=== PATIENT | female | born 1930 ===

== ENCOUNTER 2017-07-12 15:01 | Inpatient (IN) ==
[2017-07-12] MEDS: HYDROmorphone 2 MG/ML VIAL IV PRN ×3 (15:45→19:30)
[2017-07-12] MEDS ORDERED: ONDANSETRON 4 MG/2 ML VIAL ONE (15:49)
--- NOTE | 2017-07-12 16:02 | Cat Scan Report ---
CLINICAL INFORMATION: Trauma - fall COMPARISON: Plain films from 07/24/2010 TECHNIQUE: 0.625 mm helical slices were obtained from the mid L4 vertebral body. Mid femur. Following reconstruction, 2.5 or axial, coronal and sagittal reformatted images were processed and reviewed at bone and soft tissue windows. FINDINGS: Minimally comminuted, acute subcapital fracture of the right hip is appreciated. The femoral neck is displaced anteriorly approximately 15 mm with respect to the femoral head. A few tiny comminuted fracture fragments are also noted. The left total hip prostheses remains anatomically aligned without loosening or infection. Moderate diffuse osteoporosis is noted. There is a 7 cm cyst inferior pole left kidney. Visualized small/ large bowel is normal. The urinary bladder is unremarkable. IMPRESSION: Minimally comminuted, transversely oriented, acute subcapital fracture of the right hip with marked anterior displacement of the femoral neck Interpreted and Authenticated by: Vu Pelayo 07/12/17
--- NOTE | 2017-07-12 16:44 | Emergency Department Note ---
Fall HPI - General Chief Complaint: Extremity Injury, Lower Stated Complaint: fall with L hip pain Time Seen by Provider: 07/12/17 15:10 Source: EMS, other Mode of arrival: ambulatory - History of Present Illness HPI Narrative: 87-year-old female presents with right hip pain after a fall. She lives at [facility] in care. She just kind of tripped and lost her balance like her hip gave out and she fell. Did not hit her head. No loss of consciousness. No head, neck, or back pain. Cannot ambulate due to pain. She was brought in by ambulance and did have fentanyl in route. Her family is from [place] and her daughter, the power of civil litigation attorney is on her way down currently. Place Fall Occurred: snf/SNF Loss of Consciousness: none Symptoms Prior to Fall: none Context: tripped/slipped Associated symptoms (after fall): Reports: unable to walk. Denies: headache, neck pain, numbness, weakness, chest pain, shortness of breath - Related Data Home Medications Medication Instructions Recorded Confirmed Aspirin [Lite Coat Aspirin] 325 mg PO DAILY 07/12/17 07/12/17 Budesonide [Pulmicort] 0.5 mg NEB Q12 07/12/17 07/12/17 Donepezil [Aricept] 5 mg PO DAILY 07/12/17 07/12/17 Formoterol Fumarate [Perforomist] 20 mcg IH BID 07/12/17 07/12/17 Hyoscyamine Sulfate [Anaspaz] 0.125 mg PO Q4 PRN 07/12/17 07/12/17 Ipratropium [Atrovent] 2.5 ml IH BIDP PRN 07/12/17 07/12/17 LORazepam [Ativan] 0.5 mg PO DAILY 07/12/17 07/12/17 Levothyroxine [Synthroid] 75 mcg PO DAILY 07/12/17 07/12/17 Losartan/Hydrochlorothiazide 1 each PO DAILY 07/12/17 07/12/17 [Losartan-Hctz 100-25 mg Tab] Sertraline [Zoloft] 25 mg PO DAILY 07/12/17 07/12/17 Simvastatin [Zocor] 40 mg PO HS 07/12/17 07/12/17 morphine SULFATE [Morphine Sulfate] 100 mg IV BID 07/12/17 07/12/17 Allergies Allergy/AdvReac Type Severity Reaction Status Date / Time Moexipril [From Univasc] Allergy Unknown Unknown Verified 04/23/16 18:50 Review of Systems All systems ED: reviewed and negative except as stated. Fall PMH - Past Medical History Medical history: Reports: COPD, hypertension, thyroid disease, other (cardiac stent and bypass surgery) Surgical history ED: Reports: cataract, other (Cardiac stent and bypass) - Social History smoking status: Never smoker Alcohol use: Reports: None Drug use: Reports: none Physical Exam Limitations: no limitations General appearance: alert, in no apparent distress Head: atraumatic, normocephalic, normal inspection Eye: Present: normal appearance. Absent: conjunctival injection ENT: mucous membranes moist Neck: Present: normal inspection, full ROM, trachea midline. Absent: tenderness , lymphadenopathy Chest: Present: normal inspection, symmetric chest wall rise Respiratory: Present: normal lung sounds bilaterally, other (Lung sounds mildly diminished at bases bilaterally otherwise clear throughout). Absent: respiratory distress, wheezes, accessory muscle use Cardiovascular: Present: regular rate, normal heart sounds Extremities: Absent: normal inspection (Right hip with diffuse tenderness with palpation. Slightly shortened and rotated. Pedal pulses strong and equal bilaterally. Greatly limited range of motion of the right hip related pain.) Neurological: Present: alert, oriented X3. Absent: motor sensory deficit Psychiatric: Present: normal affect, normal mood Skin: Present: warm, dry, intact, normal color. Absent: rash, cyanosis, diaphoresis, erythema Course Course Narrative: At 16[address] did speak with Dr[address] Banerjee the orthopedic surgeon education and training coordinator. I have spoke with the family and they would talk like to talk to Dr. Banerjee and get his opinion on the necessity of surgery especially with her chronic health conditions. Dr. Banerjee would also like the hospitalist consult and possibly admit if they would like to move forward with surgery. At 1800 family did arrive and Dr. Farias has been in consultation with the family for the last [address] Farias agrees to admit the patient. Vital Signs Temperature 98.4 F 07/12/17 15:02 Pulse Rate 74 07/12/17 15:02 Respiratory Rate 16 07/12/17 15:02 Blood Pressure 206/114 07/12/17 15:02 Pulse Oximetry (%) 93 07/12/17 15:02 Temperature 98.4 F 07/12/17 15:02 Pulse Rate 81 07/12/17 18:31 Respiratory Rate 16 07/12/17 15:25 Blood Pressure 149/86 07/12/17 18:31 Pulse Oximetry (%) 99 07/12/17 18:31 Fall - Lab Data Lab results reviewed: Yes I reviewed the patient's lab results. Result diagrams: 07/12/17 16:15 07/12/17 16:15 Lab Results 07/12/17 07/12/17 Range/Units 16:15 16:15 WBC 3.9 L (4.5-11.0) K/mcL RBC 3.28 L (4.00-5.20) M/mcL Hgb 8.6 L (12.0-15.0) g/dL Hct 26.2 L (36.0-48.0) % MCV 80.1 (80.0-100.0) fL MCH 26.4 (26.0-34.0) pg MCHC 33.0 (31.0-36.0) g/dL RDW 15.5 H (11.5-14.5) % Plt Count 150 (140-440) K/mcL MPV 9.1 (7.4-10.4) fL Gran % 78.8 H (38.0-78.0) % Lymph % (Auto) 11.5 L (15.5-49.0) % Schley % (Auto) 8.0 (1.0-12.0) % Eos % (Auto) 1.5 (0.0-7.0) % Baso % (Auto) 0.2 (0.0-2.0) % Gran # 3.1 (1.8-8.0) K/mcL Lymph # (Auto) 0.5 L (1.5-4.8) K/mcL Schley # (Auto) 0.3 (0.1-0.9) K/mcL Eos # (Auto) 0.1 (0.0-0.7) K/mcL Baso # (Auto) 0 (0.0-0.3) K/mcL Sodium 143 (133-145) mmol/L Potassium 3.9 (3.3-5.1) mmol/L Chloride 103 (96-108) mmol/L Carbon Dioxide 29 (22-30) mmol/L Anion Gap 11.0 (8-16) BUN 25 H (8-23) mg/dl Creatinine 0.9 (0.6-1.1) mg/dl GFR Calculation 57 Glucose 120 H (70-105) mg/dL Calcium 9.2 (8.6-10.4) mg/dl Total Bilirubin 0.7 (0.0-1.0) mg/dL AST 14 (0-37) U/l ALT 11 (0-40) U/l Alkaline Phosphatase 67 (39-117) U/L Total Protein 6.4 (5.9-8.4) gm/dL Albumin 3.6 (3.2-5.2) gm/dL Globulin 2.8 (2.2-3.7) gm/dL Albumin/Globulin Ratio 1.3 (1.0-2.3) - Radiology Data Radiology results reviewed: Yes I reviewed the patient's radiology results. Disposition Pt seen by UNIT OPERATOR/PA only: No Clinical Impression: Fracture of right hip, Fall Disposition: Xfer As Inpt ([facility]) Condition: Fair Referrals: Padmini Robison MD [Primary Care Provider] - Time of Disposition: 18:52
[2017-07-12 16:46] LABS: Basophils # (Auto) 0 K/mcL (0.0-0.3); Basophils % (Auto) 0.2 % (0.0-2.0); Eosinophils # (Auto) 0.1 K/mcL (0.0-0.7); Eosinophils % (Auto) 1.5 % (0.0-7.0); Granulocytes % (Auto) 78.8 % (38.0-78.0); Lymphocytes # (Auto) 0.5 K/mcL (1.5-4.8); Lymphocytes % (Auto) 11.5 % (15.5-49.0); Mean Cell Volume 80.1 fL (80.0-100.0); Mean Corpuscular Hemoglobin 26.4 pg (26.0-34.0); Monocytes # (Auto) 0.3 K/mcL (0.1-0.9); Platelet Count 150 K/mcL (140-440); RBC 3.28 M/mcL (4.00-5.20); Red Cell Distribution Width 15.5 % (11.5-14.5)
[2017-07-12 17:06] LABS: ALT/SGPT 11 U/l (0-40); Albumin 3.6 gm/dL (3.2-5.2); Albumin/Globulin Ratio 1.3 (1.0-2.3); Alkaline Phosphatase 67 U/L (39-117); Blood Urea Nitrogen 25 mg/dl (8-23)
--- NOTE | 2017-07-12 18:03 | XRay Report ---
CLINICAL INFORMATION: Preoperative - right hip fracture COMPARISON: 06/12/2016 two view chest x-ray. FINDINGS: Film taken in extreme lordotic positioning and leftward rotation shows cardiomediastinal silhouette and pulmonary vessels normal. Lungs are clear. No effusions. Sternotomy changes noted IMPRESSION: No acute disease Interpreted and Authenticated by: Vu Pelayo 07/12/17
--- NOTE | 2017-07-12 18:48 | Internal Med History&Physical ---
Medical - H&P: [facility] Patient information: Note initiated : 07/12/17 at 6:45 pm Service Date, if different from initiated Date: [] Patient: Rafiq Padilla a 87 y/o F admitted on for fall with L hip pain. Chief Complaint: [] History of present illness: Ms. Padilla is a 87 year old F who is currently in hospice for advanced COPD dementia,the patient uses oxygen intermittently and hospice. The patient has been doing fairly well hospice care,intermittently able to ambulate by self with the help of a walker the patient had a fall this afternoon while trying to getCola out of her refrigerator. Patient had pain on the right side of the hip and was brought to the emergency room for further evaluation. In the ER the patient had a CT of the pelvis done which showed a right hip fracture. Vitals were stable, except chest is negative, labs show anemia with hemoglobin of 8.6. 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 the patient does not have chest pain or active shortness of breath. It is difficult to obtain history from the patient due to the fact that she has difficulty in hearing as well as dementia. The patient's son and daughter, the daughter is the power of immigration attorney were present at the bedside. I had an extensive discussion with them with regards to the possible outcomes for this patient. There are no word choices at this point. But surgery can be considered as a palliative care measure to control the pain. The family after extensive discussion decided to proceed with surgery pending discussion with the surgeon. ROS unobtainable: due to mental status Medical - H&P: PMH Medical history: history of coronary artery disease status post CABG, status post stent placement , history of DC, history of severe COPD, dementia, hypothyroidism, hypertension , hyperlipidemia, depression Surgical history: history of CABG History of left hip replacement 4-5 years ago it seems she tolerated the surgery well Family history: reviewed and not pertinent Social history: hospice patient, lives in assisted care facility Medical - H&P: Meds Home Medications Medication Instructions Recorded Confirmed Type Aspirin [Lite Coat Aspirin] 325 mg PO DAILY 07/12/17 07/12/17 History Budesonide [Pulmicort] 0.5 mg NEB Q12 07/12/17 07/12/17 History Donepezil [Aricept] 5 mg PO DAILY 07/12/17 07/12/17 History Formoterol Fumarate [Perforomist] 20 mcg IH BID 07/12/17 07/12/17 History Hyoscyamine Sulfate [Anaspaz] 0.125 mg PO Q4 PRN 07/12/17 07/12/17 History Ipratropium [Atrovent] 2.5 ml IH BIDP PRN 07/12/17 07/12/17 History LORazepam [Ativan] 0.5 mg PO DAILY 07/12/17 07/12/17 History Levothyroxine [Synthroid] 75 mcg PO DAILY 07/12/17 07/12/17 History Losartan/Hydrochlorothiazide 1 each PO DAILY 07/12/17 07/12/17 History [Losartan-Hctz 100-25 mg Tab] Sertraline [Zoloft] 25 mg PO DAILY 07/12/17 07/12/17 History Simvastatin [Zocor] 40 mg PO HS 07/12/17 07/12/17 History morphine SULFATE [Morphine Sulfate] 100 mg IV BID 07/12/17 07/12/17 History Allergies Allergy/AdvReac Type Severity Reaction Status Date / Time Moexipril [From Univasc] Allergy Unknown Unknown Verified 04/23/16 18:50 Medical - H&P: Exam - Constitutional Vitals: Temp Pulse Resp BP Pulse Ox 98.4 F 81 16 149/86 99 07/12/17 15:02 07/12/17 18:31 07/12/17 15:25 07/12/17 18:31 07/12/17 18:31 Exam: GENERAL: The patient is a well-developed, well-nourished in no apparent distress. Is alert and oriented x2. VITAL SIGNS: Reviewed and as noted elsewhere. HEENT: Head is normocephalic and atraumatic. Extraocular muscles are intact. Pupils are equal, round, and reactive to light. Nares appeared normal. Mouth appears any without lesions. Mucous membranes are dry NECK: Normal to inspection, Supple, No lymphadenopathy or thyromegaly. LUNGS: Air entry equal on both sides, no wheezing, crackles or rhonchi noted. No accessory muscles of respiration, ant exam only. HEART: Regular rate and rhythm normal, S1 and S2 heard, no Gallop, S3 or Rub Noted, No Gross murmur heard. ABDOMEN: Soft, nontender, and nondistended. Positive bowel sounds. No hepatosplenomegaly was noted. EXTREMITIES: No cyanosis, clubbing, rash, lesions or edema. NEUROLOGIC: Cranial nerves II through XII are grossly intact. Motor and Sensory System Grossly Intact, full exam not possible SKIN: No ulceration or wounds noted, No jaundice, No rash noted. Medical - H&P: Reslt - Labs CBC & Chem 7: 07/12/17 16:15 07/12/17 16:15 Labs: Short CBC 07/12/17 Range/Units 16:15 WBC 3.9 L (4.5-11.0) K/mcL Hgb 8.6 L (12.0-15.0) g/dL Hct 26.2 L (36.0-48.0) % Plt Count 150 (140-440) K/mcL BMP 07/12/17 16:15 Sodium 143 Potassium 3.9 Chloride 103 Carbon Dioxide 29 BUN 25 H Creatinine 0.9 Glucose 120 H Calcium 9.2 Liver Function 07/12/17 Range/Units 16:15 Total Bilirubin 0.7 (0.0-1.0) mg/dL AST 14 (0-37) U/l ALT 11 (0-40) U/l Alkaline Phosphatase 67 (39-117) U/L Albumin 3.6 (3.2-5.2) gm/dL Medical - H&P: A/P - Narrative A/P Narrative: A/P Right hip fracture dementia Pre op assesstement CAD COPD chr resp failure HTN HLD hypothyroidism Depression Plan ADmit to med surg Patient family to discuss with surgeon and finalize plan, but for now plan is to proceed with surgery for palliative care purpose Resume home meds hold home bp meds for now IV dilaudid for pain werner tylenol IV fluids DVT prophylaxis with hep sq NPO diet DNR code status Spent > 35 mins with patient and family, in counselling, care coordination
[2017-07-12] MEDS ORDERED: NALOXONE HCL 0.4 MG/ML VIAL IV PRN (20:00)
[2017-07-12] MEDS ORDERED: ONDANSETRON 4 MG/2 ML VIAL IV PRN (20:00)
[2017-07-12] MEDS ORDERED: HYOSCYAMINE SULFATE 0.125 MG TABLET SL PRN (20:14)
[2017-07-12] MEDS: ACETAMINOPHEN 325 MG TABLET PO SCH (20:24)
[2017-07-12] MEDS: DEXTROSE 5%-1/2NS W/20MEQ KCL 1,000 ML IV SCH (20:29)
[2017-07-12] MEDS: IPRATROPIUM/ALBUTEROL 3 ML AMPUL.NEB NEB SCH ×2 (20:38→23:29)
[2017-07-12] MEDS: BUDESONIDE 0.5 MG/2 ML AMPUL.NEB NEB SCH (20:39)
[2017-07-12] MEDS: HEPARIN 5,000 UNIT/ML VIAL SQ SCH (22:23)
[2017-07-12] MEDS: DOCUSATE SODIUM 100 MG CAPSULE PO SCH (22:23)
[2017-07-12] MEDS: SIMVASTATIN 40 MG TABLET PO SCH (22:23)
[2017-07-12] MEDS: Formoterol Fumarate [Perforomist] 20 MCG INH SCH (22:24)
[2017-07-12] MEDS: 0.9 % SODIUM CHLORIDE 10 ML SYRINGE IV SCH (22:24)
[2017-07-13] MEDS: HYDROmorphone 2 MG/ML VIAL IV PRN ×4 (00:33→11:44)
[2017-07-13] MEDS: IPRATROPIUM/ALBUTEROL 3 ML AMPUL.NEB NEB SCH ×6 (02:44→22:57)
[2017-07-13] MEDS: ACETAMINOPHEN 325 MG TABLET PO SCH ×4 (02:45→20:09)
[2017-07-13] MEDS: 0.9 % SODIUM CHLORIDE 10 ML SYRINGE IV SCH ×2 (05:03→14:38)
[2017-07-13] MEDS: BUDESONIDE 0.5 MG/2 ML AMPUL.NEB NEB SCH ×2 (07:16→19:40)
[2017-07-13] MEDS: DONEPEZIL 10 MG TABLET PO SCH (08:17)
[2017-07-13] MEDS: LEVOTHYROXINE 75 MCG TABLET PO SCH (08:17)
[2017-07-13] MEDS: DOCUSATE SODIUM 100 MG CAPSULE PO SCH ×2 (08:18→22:35)
[2017-07-13] MEDS: SERTRALINE 50 MG TABLET PO SCH (08:18)
[2017-07-13] MEDS: HEPARIN 5,000 UNIT/ML VIAL SQ SCH ×2 (08:18→22:36)
[2017-07-13] MEDS: LORazepam 0.5 MG TABLET PO SCH (08:18)
[2017-07-13 09:56] LABS: Appearance,Urine CLEAR; Bacteria,Urine 0 /hpf (0); Bilirubin,Urine NEG (NEG); Color,Urine YELLOW; Glucose,Urine (UA) NEGATIVE (NEG); Leukocyte Esterase,Urine NEG /uL (NEG); Mucus,Urine FEW /hpf (0); Protein,Urine NEG (NEG); Specific Gravity,Urine 1.019 (1.000-1.035); Urine Blood 0.2 mg/dL (<0.03); Urine Hyaline Cast 5 /lpf (0-2); Urine RBC 24 /hpf (0-1); Urine Squamous Epithelial Cell 1 /hpf (0-4); Urine WBC 7 /hpf (0-4); Urobilinogen,Urine NEG (NEG)
[2017-07-13] MEDS: Formoterol Fumarate [Perforomist] 20 MCG INH SCH ×2 (10:06→22:36)
[2017-07-13] MEDS: DEXTROSE 5%-1/2NS W/20MEQ KCL 1,000 ML IV SCH (10:07)
[2017-07-13] MEDS ORDERED: 0.9 % SODIUM CHLORIDE 250 ML IV SCH (13:45)
--- NOTE | 2017-07-13 14:11 | Internal Med Progress Note ---
Medical - PN: Subj Patient information: Note initiated : 07/13/17 at 2:08 pm Service Date, if different from initiated Date: [] Patient: Rafiq Padilla a 87 y/o F admitted on 07/12/17 for Fall with L Hip Pain/Right Hip Fracture. Chief Complaint: [] Interval history: Ms. Padilla is a 87 year old F who is currently in hospice for advanced COPD dementia,the patient uses oxygen intermittently and hospice. The patient has been doing fairly well hospice care,intermittently able to ambulate by self with the help of a walker the patient had a fall this afternoon while trying to getCola out of her refrigerator. Patient had pain on the right side of the hip and was brought to the emergency room for further evaluation. In the ER the patient had a CT of the pelvis done which showed a right hip fracture. Vitals were stable, except chest is negative, labs show anemia with hemoglobin of 8.6. 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 the patient does not have chest pain or active shortness of breath. It is difficult to obtain history from the patient due to the fact that she has difficulty in hearing as well as dementia. The patient's son and daughter, the daughter is the power of employment law attorney were present at the bedside. I had an extensive discussion with them with regards to the possible outcomes for this patient. There are no word choices at this point. But surgery can be considered as a palliative care measure to control the pain. The family after extensive discussion decided to proceed with surgery pending discussion with the surgeon. Jul 13 patient seen and examined, daughter by the bedside, patient is hard of hearing, denies any acute complaints. She still has some pain in the leg. Plan for surgery this afternoon. Reviewing the case with anesthesia, they spoke with his surgeon yesterday patient remains high risk for surgery, surgery so palliative Purposes Pertinent ROS: unable due to mental status - Constitutional Vitals: Vital Signs Temp Pulse Resp BP Pulse Ox 99.4 F H 88 18 116/56 95 07/13/17 12:00 07/13/17 11:45 07/13/17 12:00 07/13/17 12:00 07/13/17 12:00 Period Temp Pulse Resp BP Sys/Alvarez Pulse Ox Last 24 Hr 98.4 F-99.4 F 69-88 16-20 116-206/45-114 88-100 Intake and Output 07/13/17 07/13/17 07/13/17 05:59 13:59 21:59 Intake Total 150 / 150 Output Total 400 / 400 Balance -250 / -250 Intake & Output: Intake & Output 07/13/17 07/13/17 07/13/17 05:59 13:59 21:59 Intake Total 150 / 150 Output Total 400 / 400 Balance -250 / -250 Intake: Oral 150 / 150 Output: Urine Catheter Amount 400 / 400 Exam: Constitutional; Afebrile, cooperative, alert, not in distress. Eyes- No icterus, , No periorbital swelling Ears- Ext ear normal, urinary heart to conversation Neck- Midline trachea, supple Respiratory system: Air Entry equal on both sides, No crackles or wheezing, no rhonchi.anterior exam only CVS- Rate rhythm regular, S1,S2 heard, no gallop, no rub. Abdomen- Soft nontender abdomen, no organomegaly, no tenderness, no guarding or rigidity, SENIOR SUPPLIER QUALITY ENGINEER- AOOx1, moving all extremities, no gross focal deficit noted.Limited exam of the lower extremity due to fracture Medical - PN: Obj Da - Labs CBC & Chem 7: 07/12/17 16:15 07/12/17 16:15 Labs: Abnormal Lab Results 07/13/17 07/12/17 07/12/17 09:08 16:15 16:15 WBC 3.9 L RBC 3.28 L Hgb 8.6 L Hct 26.2 L RDW 15.5 H Gran % 78.8 H Lymph % (Auto) 11.5 L Lymph # (Auto) 0.5 L BUN 25 H Glucose 120 H Urine Occult Blood 0.2 A Urine RBC 24 H Urine WBC 7 H Hyaline Casts 5 H Meds: Medications Acetaminophen (Tylenol) 650 mg PO Q6H [facility] Last Admin: 07/13/17 08:17 Dose: Not Given Albuterol/Ipratropium (Duoneb) 3 ml NEB Q4HRT [facility] Last Admin: 07/13/17 11:46 Dose: 3 ml Budesonide (Pulmicort) 0.5 mg NEB Q12 [facility] Last Admin: 07/13/17 07:16 Dose: 0.5 mg Docusate Sodium (Colace) 100 mg PO BID [facility] Last Admin: 07/13/17 08:18 Dose: Not Given Donepezil HCl (Aricept) 10 mg PO DAILY [facility] Last Admin: 07/13/17 08:17 Dose: Not Given Heparin Sodium (Porcine) (Heparin) 5,000 unit SQ Q12 [facility] Last Admin: 07/13/17 08:18 Dose: Not Given Hydromorphone HCl (Dilaudid) 0.5 mg IV Q2HP PRN PRN Reason: PAIN LEVEL > 6 Last Admin: 07/13/17 11:44 Dose: 0.5 mg Hyoscyamine (Levsin) 0.125 mg SL Q4HP PRN PRN Reason: Secretions Potassium Chloride/Dextrose/Sod Cl (Dextrose 5%-1/2ns W/20meq Kcl) 1,000 mls @ 75 mls/hr IV .[id number] [facility] Last Admin: 07/13/17 10:07 Dose: Not Given Sodium Chloride (Sodium Chloride 0.9%) 250 mls @ 20 mls/hr IV .[id number] [facility] Stop: 07/14/17 02:14 Levothyroxine Sodium (Synthroid) 75 mcg PO QAMAC [facility] Last Admin: 07/13/17 08:17 Dose: Not Given Lorazepam (Ativan) 0.5 mg PO DAILY [facility] Last Admin: 07/13/17 08:18 Dose: Not Given Naloxone HCl (Narcan) 0.1 mg IV Q2MIN PRN PRN Reason: Opiate Reversal Ondansetron HCl (Zofran) 4 mg IV Q6HP PRN PRN Reason: Nausea And Vomiting Formoterol Fumarate ([Perforomist] 20 Mcg) 1 dose INH BID [facility] Last Admin: 07/13/17 10:06 Dose: Not Given Sertraline HCl (Zoloft) 25 mg PO DAILY [facility] Last Admin: 07/13/17 08:18 Dose: Not Given Simvastatin (Zocor) 40 mg PO HS [facility] Last Admin: 07/12/17 22:23 Dose: 40 mg Sodium Chloride (Saline Flush) 10 ml IV Q8 [facility] Last Admin: 07/13/17 05:03 Dose: Not Given Medical - PN: A/P - Time Spent With Patient Total time spent is greater than 50% in coordination of care (as documented) at patient's floor/unit and/or counseling patient: - Narrative A/P Narrative: A/P Right hip fracture dementia Pre op assesstement CAD COPD chr resp failure HTN HLD hypothyroidism Depression Plan home medications resumed as appropriate diuretics NANDINI inhibitor was held IV dilaudid for pain werner tylenol stop IV fluids today Duonebs q4hrs perioperatively oxygen supplementation to keep osat > 90 DVT prophylaxis with hep sq NPO diet DNR code status plan for surgery this afternoon. She may need rehabilitation or she may go back to assisted living with home physical therapy under hospice Medical - PN: Qual - Stroke Symptom Onset Unknown: No - VTE Deep Vein Thrombosis/Pulmonary Embolism Present on Admission: No
[2017-07-13] MEDS ORDERED: ceFAZolin 1 GM VIAL IV ONE (16:07)
[2017-07-13] MEDS ORDERED: PROPOFOL 200 MG/20 ML VIAL IV ONE (16:35)
[2017-07-13] MEDS ORDERED: KETAMINE 100 MG/ML ML IV ONE (16:35)
[2017-07-13] MEDS ORDERED: ONDANSETRON 4 MG/2 ML VIAL IV ONE (16:35)
[2017-07-13] MEDS ORDERED: DEXAMETHASONE 10 MG/ML VIAL IV ONE (16:35)
[2017-07-13] MEDS ORDERED: PHENYLEPHRINE 10 MG/ML VIAL IV ONE (16:35)
[2017-07-13] MEDS ORDERED: LIDOCAINE HCL/PF 100 MG/5 ML SYRINGE IV ONE (16:35)
[2017-07-13] MEDS ORDERED: GLYCOPYRROLATE 0.2 MG/ML VIAL IV ONE (16:35)
[2017-07-13] MEDS ORDERED: IPRATROPIUM/ALBUTEROL 3 ML AMPUL.NEB NEB PRN (17:25)
[2017-07-13] MEDS ORDERED: ONDANSETRON 4 MG/2 ML VIAL IV PRN (17:25)
[2017-07-13] MEDS ORDERED: MEPERIDINE 25 MG/ML SYRINGE IV PRN (17:25)
[2017-07-13] MEDS ORDERED: fentaNYL 100 MCG/2 ML VIAL IV PRN (17:25)
[2017-07-13] MEDS ORDERED: LACTATED RINGERS 1,000 ML IV SCH (17:30)
--- NOTE | 2017-07-13 17:33 | Brief Operative Note ---
Date of procedure: 07/13/17 Pre-op diagnosis: Right femoral neck fracture Post-op diagnosis: same Procedure: Right hip hemiarthroplasty Grafts/Implants: Yes (Depuy [place] Basic 3 stem, -3 neck, 44 head) Anesthesia: spinal, GLMA Findings: femoral neck fracture Complications: none Surgeon: Anand Banerjee Women'S Soccer Coach: Han Stearns Estimated blood loss (cc): 100 Specimens Removed/Pathology: none sent Condition: stable Disposition: PACU
[2017-07-13] MEDS ORDERED: BENZOCAINE/MENTHOL 1 LOZENGE PO PRN (17:34)
[2017-07-13] MEDS ORDERED: MAGNESIUM HYDROXIDE 30 ML ORAL.SUSP PO PRN (17:34)
[2017-07-13] MEDS ORDERED: POLYETHYLENE GLYCOL 3350 17 GM PACKET PO PRN (17:34)
[2017-07-13] MEDS ORDERED: HYDROcodone/APAP 5/325MG TABLET PO PRN (17:34)
[2017-07-13] MEDS ORDERED: BISACODYL 10 MG SUPP.RECT PR PRN (17:34)
[2017-07-13] MEDS ORDERED: FLEETS ADULT ENEMA PR PRN (17:34)
[2017-07-13] MEDS ORDERED: METOPROLOL TARTRATE 5 MG/5 ML VIAL IV ONE ×2 (17:56→18:00)
--- NOTE | 2017-07-13 18:31 | XRay Report ---
CLINICAL INFORMATION: Right hip prostheses COMPARISON: None. FINDINGS: ] New right hip prostheses is anatomically aligned. No osseous abnormality. Older left hip prostheses also anatomically aligned without loosening or infection IMPRESSION: Negative Interpreted and Authenticated by: Vu Pelayo 07/13/17
[2017-07-13] MEDS ORDERED: WARFARIN 5 MG TABLET PO ONE (19:00)
[2017-07-13] MEDS ORDERED: WARFARIN 3 MG TABLET PO SCH (20:00)
[2017-07-13] MEDS: SENNOSIDES 1 TABLET PO SCH (22:35)
[2017-07-13] MEDS: SIMVASTATIN 40 MG TABLET PO SCH (22:35)
[2017-07-14] MEDS: 0.9 % SODIUM CHLORIDE 10 ML SYRINGE IV SCH ×4 (01:00→20:37)
[2017-07-14] MEDS: ceFAZolin 1 GM VIAL IV SCH ×2 (01:06→08:12)
[2017-07-14] MEDS: IPRATROPIUM/ALBUTEROL 3 ML AMPUL.NEB NEB SCH ×4 (02:31→20:27)
[2017-07-14] MEDS: ACETAMINOPHEN 325 MG TABLET PO SCH ×4 (02:31→20:36)
[2017-07-14] MEDS ORDERED: 0.9 % SODIUM CHLORIDE 250 ML IV SCH (07:00)
[2017-07-14] MEDS: BUDESONIDE 0.5 MG/2 ML AMPUL.NEB NEB SCH ×2 (07:23→20:28)
[2017-07-14] MEDS: LEVOTHYROXINE 75 MCG TABLET PO SCH (08:11)
[2017-07-14] MEDS: LORazepam 0.5 MG TABLET PO SCH (10:02)
[2017-07-14] MEDS: DONEPEZIL 10 MG TABLET PO SCH (10:02)
[2017-07-14] MEDS: DOCUSATE SODIUM 100 MG CAPSULE PO SCH ×2 (10:03→20:36)
[2017-07-14] MEDS: SERTRALINE 50 MG TABLET PO SCH (10:03)
[2017-07-14] MEDS: HEPARIN 5,000 UNIT/ML VIAL SQ SCH ×2 (10:03→20:37)
[2017-07-14] MEDS: Formoterol Fumarate [Perforomist] 20 MCG INH SCH ×2 (10:04→20:37)
[2017-07-14] MEDS ORDERED: WARFARIN 3 MG TABLET PO SCH (14:00)
--- NOTE | 2017-07-14 14:18 | Orthopedic Progress Note ---
Orthopedics - Auxillary Note - Subjective Patient Information: Note initiated : 07/14/17 at 2:17 pm Service Date, if different from initiated Date: [] Patient: Rafiq Padilla 87 y/o F admitted on 07/12/17 for Fall with L Hip Pain/Right Hip Fracture. Chief Complaint: no c/o, but pt remians confused. bandages c/d/i nvi-distal Vital Signs Temp Pulse Pulse Pulse Resp BP BP 07/14/17 12:00 99.6 F H 18 126/65 07/14/17 07:33 98.8 F 16 121/57 07/14/17 07:32 82 16 07/14/17 03:12 97.3 F 77 16 114/45 07/14/17 00:00 99.0 F H 79 16 108/60 07/13/17 23:02 80 16 07/13/17 21:29 98.5 F 74 16 103/54 07/13/17 20:29 82 123/53 07/13/17 19:59 83 123/58 07/13/17 19:45 73 14 07/13/17 19:40 07/13/17 19:29 79 107/59 07/13/17 19:14 77 119/53 07/13/17 18:59 81 120/59 07/13/17 18:44 100.0 F H 84 16 158/69 07/13/17 18:40 07/13/17 18:30 98.8 F 80 82 14 204/76 130/51 07/13/17 18:15 98.8 F 109 H 81 12 204/76 138/63 07/13/17 18:00 98.8 F 109 H 79 10 L 204/76 144/53 07/13/17 17:55 88 12 134/45 07/13/17 17:50 98.8 F 109 H 88 14 204/76 131/79 07/13/17 17:45 98.8 F 109 H 109 H 14 204/76 153/69 07/13/17 15:29 82 14 Pulse Ox 07/14/17 12:00 97 07/14/17 07:33 96 07/14/17 07:32 96 07/14/17 03:12 93 07/14/17 00:00 94 07/13/17 23:02 07/13/17 21:29 96 07/13/17 20:29 94 07/13/17 19:59 93 07/13/17 19:45 07/13/17 19:40 94 07/13/17 19:29 94 07/13/17 19:14 94 07/13/17 18:59 93 07/13/17 18:44 97 07/13/17 18:40 96 07/13/17 18:30 100 07/13/17 18:15 100 07/13/17 18:00 100 07/13/17 17:55 100 07/13/17 17:50 91 07/13/17 17:45 100 07/13/17 15:29 Intake and Output 07/14/17 07/14/17 07/14/17 05:59 13:59 21:59 Output Total 175 / 175 Balance -175 / -175 Output: Urine Catheter Amount 175 / 175 Other: Meal snack with meds, per pt request Lunch Percent of Meal Consumed 75% 25% Laboratory Results - last 24 hr 07/14/17 07/14/17 04:27 04:27 Hgb 7.0 L* Hct 21.2 L PT 14.6 H INR 1.1 s/p R kathrin hip arthroplasty-stable mobilize with PT
--- NOTE | 2017-07-14 16:37 | Internal Med Progress Note ---
Medical - PN: Subj Patient information: Note initiated : 07/14/17 at 4:35 pm Service Date, if different from initiated Date: [] Patient: Rafiq Padilla a 87 y/o F admitted on 07/12/17 for Fall with L Hip Pain/Right Hip Fracture. Interval history: Ms. Padilla is a 87 year old F who is currently in hospice for advanced COPD dementia,the patient uses oxygen intermittently and hospice. The patient has been doing fairly well hospice care,intermittently able to ambulate by self with the help of a walker the patient had a fall this afternoon while trying to getCola out of her refrigerator. Patient had pain on the right side of the hip and was brought to the emergency room for further evaluation. In the ER the patient had a CT of the pelvis done which showed a right hip fracture. Vitals were stable, except chest is negative, labs show anemia with hemoglobin of 8.6. 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 the patient does not have chest pain or active shortness of breath. It is difficult to obtain history from the patient due to the fact that she has difficulty in hearing as well as dementia. The patient's son and daughter, the daughter is the power of ip technology transactions attorney were present at the bedside. I had an extensive discussion with them with regards to the possible outcomes for this patient. There are no word choices at this point. But surgery can be considered as a palliative care measure to control the pain. The family after extensive discussion decided to proceed with surgery pending discussion with the surgeon. Jul 13 patient seen and examined, daughter by the bedside, patient is hard of hearing, denies any acute complaints. She still has some pain in the leg. Plan for surgery this afternoon. Reviewing the case with anesthesia, they spoke with his surgeon yesterday Surgery: R hip hemiarthroplasty by dr Banerjee. Well tolerated. 07/14: Had uneventful night. Hb dropped from 8.6 to 7. For 2 U RBC today. - Constitutional Vitals: Vital Signs Temp Pulse Resp BP Pulse Ox 99.4 F H 82 18 113/55 95 07/14/17 15:57 07/14/17 07:32 07/14/17 15:57 07/14/17 15:57 07/14/17 15:57 Period Temp Pulse Resp BP Sys/Alvarez Pulse Ox Last 24 Hr 97.3 F-100.0 F 73-109 10-18 103-204/45-79 91-100 Intake and Output 07/14/17 07/14/17 07/14/17 05:59 13:59 21:59 Output Total 175 / 175 Balance -175 / -175 Intake & Output: Intake & Output 07/14/17 07/14/17 07/14/17 05:59 13:59 21:59 Output Total 175 / 175 Balance -175 / -175 Output: Urine Catheter Amount 175 / 175 Other: Meal snack with meds, per pt request Lunch Percent of Meal Consumed 75% 25% General appearance: no acute distress - Respiratory Respiratory exam: Present: normal respiratory exam - Cardiovascular Cardiovascular exam: Present: normal rate and rhythm - GI/Abdominal GI/Abdominal exam: Present: normal bowel sounds, soft Medical - PN: Obj Da - Labs CBC & Chem 7: 07/14/17 04:27 07/12/17 16:15 Labs: Abnormal Lab Results 07/14/17 07/14/17 07/13/17 04:27 04:27 09:08 WBC RBC Hgb 7.0 L* Hct 21.2 L RDW Gran % Lymph % (Auto) Lymph # (Auto) PT 14.6 H BUN Glucose Urine Occult Blood 0.2 A Urine RBC 24 H Urine WBC 7 H Hyaline Casts 5 H 07/12/17 07/12/17 16:15 16:15 WBC 3.9 L RBC 3.28 L Hgb 8.6 L Hct 26.2 L RDW 15.5 H Gran % 78.8 H Lymph % (Auto) 11.5 L Lymph # (Auto) 0.5 L PT BUN 25 H Glucose 120 H Urine Occult Blood Urine RBC Urine WBC Hyaline Casts Meds: Medications Acetaminophen (Tylenol) 650 mg PO Q6H [facility] Last Admin: 07/14/17 13:03 Dose: 650 mg Hydrocodone Bitart/Acetaminophen ([place] 5/325mg) 0 tab PO Q4HP PRN PRN Reason: PAIN LEVEL 3-6 Albuterol/Ipratropium (Duoneb) 3 ml NEB TID [facility] Last Admin: 07/14/17 14:36 Dose: Not Given Bisacodyl (Dulcolax) 10 mg LA Q2-3DAYS PRN PRN Reason: Constipation Budesonide (Pulmicort) 0.5 mg NEB Q12 [facility] Last Admin: 07/14/17 07:23 Dose: 0.5 mg Docusate Sodium (Colace) 100 mg PO BID [facility] Last Admin: 07/14/17 10:03 Dose: 100 mg Donepezil HCl (Aricept) 10 mg PO DAILY [facility] Last Admin: 07/14/17 10:02 Dose: 10 mg Heparin Sodium (Porcine) (Heparin) 5,000 unit SQ Q12 [facility] Last Admin: 07/14/17 10:03 Dose: 5,000 unit Hydromorphone HCl (Dilaudid) 0.5 mg IV Q2HP PRN PRN Reason: PAIN LEVEL > 6 Last Admin: 07/13/17 11:44 Dose: 0.5 mg Hyoscyamine (Levsin) 0.125 mg SL Q4HP PRN PRN Reason: Secretions Sodium Chloride (Sodium Chloride 0.9%) 250 mls @ 20 mls/hr IV .[id number] [facility] Stop: 07/14/17 19:29 Last Admin: 07/14/17 10:55 Dose: 20 mls/hr Levothyroxine Sodium (Synthroid) 75 mcg PO QAMAC [facility] Last Admin: 07/14/17 08:11 Dose: 75 mcg Lorazepam (Ativan) 0.5 mg PO DAILY [facility] Last Admin: 07/14/17 10:02 Dose: 0.5 mg Magnesium Hydroxide (Milk Of Magnesia) 30 ml PO BIDP PRN PRN Reason: Constipation Naloxone HCl (Narcan) 0.1 mg IV Q2MIN PRN PRN Reason: Opiate Reversal Ondansetron HCl (Zofran) 4 mg IV Q6HP PRN PRN Reason: Nausea And Vomiting Formoterol Fumarate ([Perforomist] 20 Mcg) 1 dose INH BID [facility] Last Admin: 07/14/17 10:04 Dose: Not Given Polyethylene Glycol (Miralax) 17 gm PO DAILYP PRN PRN Reason: Constipation Senna (Senokot) 2 tab PO [facility] Last Admin: 07/13/17 22:35 Dose: 2 tab Sertraline HCl (Zoloft) 25 mg PO DAILY [facility] Last Admin: 07/14/17 10:03 Dose: 25 mg Simvastatin (Zocor) 40 mg PO [facility] Last Admin: 07/13/17 22:35 Dose: 40 mg Sodium Biphosphate/Sodium Phosphate (Fleets Adult) 1 dose LA Q3-4DAYS PRN PRN Reason: Constipation Sodium Chloride (Saline Flush) 10 ml IV Q8 [facility] Last Admin: 07/14/17 13:05 Dose: Not Given Throat Lozenges (Cepacol) 1 lozenge PO PRN PRN PRN Reason: Sore Throat Warfarin Sodium (Coumadin Per Pharmacy) 1 order PO UD [facility] Warfarin Sodium (Coumadin) 3 mg PO DAILY@1400 [facility] Last Admin: 07/14/17 13:03 Dose: 3 mg Medical - PN: A/P - Time Spent With Patient Total time spent is greater than 50% in coordination of care (as documented) at patient's floor/unit and/or counseling patient: less than 15 minutes - Narrative A/P Narrative: A/P Right hip fracture. S/P hemiarthroplasty 07/13 dementia Pre op assesstement CAD COPD chr resp failure HTN HLD hypothyroidism Depression Plan Pain control RBC 2 units oxygen supplementation to keep O2 sat> 92-94% DVT prophylaxis as per ortho service DNR code status Medical - PN: Qual - Stroke Symptom Onset Unknown: No - VTE Deep Vein Thrombosis/Pulmonary Embolism Present on Admission: No
[2017-07-14] MEDS ORDERED: LORazepam 0.5 MG TABLET PO PRN (18:29)
[2017-07-14] MEDS ORDERED: LORazepam 0.5 MG TABLET ONE (18:38)
[2017-07-14] MEDS: SIMVASTATIN 40 MG TABLET PO SCH (20:36)
[2017-07-14] MEDS: SENNOSIDES 1 TABLET PO SCH (20:36)
[2017-07-15] MEDS: ACETAMINOPHEN 325 MG TABLET PO SCH ×2 (02:24→07:31)
[2017-07-15] MEDS: 0.9 % SODIUM CHLORIDE 10 ML SYRINGE IV SCH (06:05)
[2017-07-15] MEDS: LEVOTHYROXINE 75 MCG TABLET PO SCH (07:31)
--- NOTE | 2017-07-15 07:47 | Orthopedic Progress Note ---
Orthopedics - Auxillary Note - Subjective Patient Information: Note initiated : 07/15/17 at 7:45 am Service Date, if different from initiated Date: [] Patient: Rafiq Padilla 87 y/o F admitted on 07/12/17 for Fall with L Hip Pain/Right Hip Fracture. Chief Complaint: no c/o. pt remains confused. incision well approximated, no erythema/drainage. nvi-distal Vital Signs Temp Pulse Pulse Resp BP Pulse Ox 07/15/17 07:29 98.1 F 88 24 H 164/78 96 07/15/17 04:00 97.6 F 82 22 179/78 96 07/15/17 00:00 98.8 F 86 20 146/67 93 07/14/17 20:29 87 18 07/14/17 20:00 97.6 F 84 22 146/66 93 07/14/17 15:57 99.4 F H 18 113/55 95 07/14/17 12:00 99.6 F H 18 126/65 97 07/14/17 08:15 76 18 96 Intake and Output 07/14/17 07/15/17 07/15/17 21:59 05:59 13:59 Intake Total 725 / 725 175 / 175 Output Total 150 / 150 600 / 600 Balance 575 / 575 -425 / -425 Intake: Oral 80 / 80 175 / 175 Blood Product 645 / 645 Output: Urine Catheter Amount 150 / 150 600 / 600 Other: Weight 109 lb Laboratory Results - last 24 hr 07/15/17 04:50 Hgb 10.6 L Hct 31.3 L s/p R kathrin-hip arthroplasty-stable mobilize with PT f/u at [facility] 10-14 days weight bear as tolerated.
[2017-07-15] MEDS: SERTRALINE 50 MG TABLET PO SCH (09:03)
[2017-07-15] MEDS: HEPARIN 5,000 UNIT/ML VIAL SQ SCH (09:03)
[2017-07-15] MEDS: DONEPEZIL 10 MG TABLET PO SCH (09:04)
[2017-07-15] MEDS: LORazepam 0.5 MG TABLET PO SCH (09:04)
[2017-07-15] MEDS: DOCUSATE SODIUM 100 MG CAPSULE PO SCH (09:10)
--- NOTE | 2017-07-15 09:10 | Discharge Summary ---
Medical - DS: Prov Patient information: Note initiated : 07/15/17 at 9:03 am Service Date, if different from initiated Date: [] Patient: Rafiq Padilla 87 y/o F admitted on 07/12/17 for Fall with L Hip Pain/Right Hip Fracture. Date of admission: 07/12/17 19:40 Discharge date: 07/15/17 Primary care physician: Molly De Jesus Consults: 07/12/17 16:48 Consult to Physician [CONS] Stat Comment: Consulting Provider: Anand Banerjee Reason For Exam: Physician to Consult Consult to Physician [CONS] Stat Comment: Consulting Provider: Simón Farias Reason For Exam: Physician to Consult Medical - DS: Meds - Discharge Medications Active and Home Medications: Home Medications Aspirin [Lite Coat Aspirin] 325 mg PO DAILY 07/12/17 [History Confirmed Last Taken 07/12/17 08:00] Budesonide [Pulmicort] 0.5 mg NEB Q12 07/12/17 [History Confirmed 07/12/17 Last Taken 07/12/17 08:00] Donepezil [Aricept] 5 mg PO DAILY 07/12/17 [History Confirmed 07/12/17 Last Taken 07/11/17 08:00] Formoterol Fumarate [Perforomist] 20 mcg IH BID 07/12/17 [History Confirmed Last Taken 05/11/17 10:00] Hyoscyamine Sulfate [Anaspaz] 0.125 mg PO Q4 PRN 07/12/17 [History Confirmed Last Taken Unknown] Ipratropium [Atrovent] 2.5 ml IH BIDP PRN 07/12/17 [History Confirmed 07/12/17 Last Taken Unknown] LORazepam [Ativan] 0.5 mg PO DAILY 07/12/17 [History Confirmed 07/12/17 Last Taken 07/12/17 08:00] Levothyroxine [Synthroid] 75 mcg PO DAILY 07/12/17 [History Confirmed 07/12/17 Last Taken 07/12/17 08:00] Losartan/Hydrochlorothiazide [Losartan-Hctz 100-25 mg Tab] 1 each PO DAILY 07/12 [History Confirmed 07/12/17 Last Taken 07/12/17 08:00] Sertraline [Zoloft] 25 mg PO DAILY 07/12/17 [History Confirmed 07/12/17 Last Taken 07/12/17 08:00] Simvastatin [Zocor] 40 mg PO HS 07/12/17 [History Confirmed 07/12/17 Last Taken 07/11/17 20:00] morphine SULFATE [Morphine Sulfate] 100 mg IV BID 07/12/17 [History Confirmed Last Taken Unknown] Medical - DS: Hosp Hospital course: Ms. Padilla is a 87 year old F who is currently in hospice for advanced COPD dementia,the patient uses oxygen intermittently and hospice. The patient has been doing fairly well hospice care,intermittently able to ambulate by self with the help of a walker the patient had a fall this afternoon while trying to getCola out of her refrigerator. Patient had pain on the right side of the hip and was brought to the emergency room for further evaluation. In the ER the patient had a CT of the pelvis done which showed a right hip fracture. Vitals were stable, except chest is negative, labs show anemia with hemoglobin of 8.6. 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 the patient does not have chest pain or active shortness of breath. It is difficult to obtain history from the patient due to the fact that she has difficulty in hearing as well as dementia. The patient's son and daughter, the daughter is the power of commercial attorney were present at the bedside. I had an extensive discussion with them with regards to the possible outcomes for this patient. There are no word choices at this point. But surgery can be considered as a palliative care measure to control the pain. The family after extensive discussion decided to proceed with surgery pending discussion with the surgeon. Jul 13 patient seen and examined, daughter by the bedside, patient is hard of hearing, denies any acute complaints. She still has some pain in the leg. Plan for surgery this afternoon. Reviewing the case with anesthesia, they spoke with his surgeon yesterday Surgery: R hip hemiarthroplasty by dr Banerjee. Well tolerated. 07/14: Had uneventful night. Hb dropped from 8.6 to 7. For 2 U RBC today. 07/15: Patient is doing fairly well. Only requiring acetaminophen for pain control. Received 2 Units RBC yesterday. H/H: 10.6/31.3 Will discharge back to [facility]. Discharge diagnosis: R hip fracture, Fall, Secondary discharge diagnosis: COPD, Chronic Resp failure, HTN Reason for admission: Pain R hip after fall Pertinent studies/significant findings: CT-pelvis 07/12/17: Minimally comminuted, transversely oriented, acute subcapital fracture of the right hip with marked anterior displacement of the femoral neck Complications: None - Time Spent with Patient Total time spent providing and/or coordinating discharge services: Less than 30 minutes Medical - DS: Exam - Constitutional Vitals: Vital Signs Temp Pulse Pulse Resp BP Pulse Ox 07/15/17 07:47 96 07/15/17 07:29 98.1 F 88 24 H 164/78 96 07/15/17 04:00 97.6 F 82 22 179/78 96 07/15/17 00:00 98.8 F 86 20 146/67 93 07/14/17 20:29 87 18 07/14/17 20:00 97.6 F 84 22 146/66 93 07/14/17 15:57 99.4 F H 18 113/55 95 07/14/17 12:00 99.6 F H 18 126/65 97 Intake and Output 07/14/17 07/15/17 07/15/17 21:59 05:59 13:59 Intake Total 725 / 725 175 / 175 Output Total 150 / 150 600 / 600 Balance 575 / 575 -425 / -425 Intake: Oral 80 / 80 175 / 175 Blood Product 645 / 645 Output: Urine Catheter Amount 150 / 150 600 / 600 Other: # Bowel Movements 1 Weight 109 lb General appearance: no acute distress - Respiratory Respiratory exam: Present: normal respiratory exam - Cardiovascular Cardiovascular exam: Present: normal rate and rhythm - GI/Abdominal GI/Abdominal exam: Present: normal bowel sounds, soft - Extremities Exam Additional comments: R hip dressing intact Medical - DS: Data Procedures and tests throughout hospitalization: Date of procedure: 07/13/17 Pre-op diagnosis: Right femoral neck fracture Post-op diagnosis: same Procedure: Right hip hemiarthroplasty Grafts/Implants: Yes (Depuy [place] Basic 3 stem, -3 neck, 44 head) Anesthesia: spinal, GLMA Findings: femoral neck fracture Complications: none Surgeon: Anand Banerjee Assembler Piano: Han Stearns Estimated blood loss (cc): [address] Banerjee Labs on day of discharge: Labs from last 24 hours 07/15/17 07/15/17 04:50 04:50 Hgb 10.6 L Hct 31.3 L PT 20.4 H INR 1.7 H Preliminary micro results at discharge 07/13/17 09:08 Urine Culture - Preliminary Urine - Catheterized Medical - DS: A/P - Patient/Caregiver Discharge Instructions Activity: as per physical therapy, increase activity as tolerated Diet: Regular Diet Additional Instructions: Discharge Instructions: Do the exercises at home that physical therapy gave you. Take your prescription, photo ID, insurance cards, and current medication list with you to your first physical therapy appointment. Take your prescription to shrimp picker any medication or equipment (such as walker, crutches, toilet riser or C.P.M.) Wear comfortable clothing for your physical therapy. Weight bearing as tolerated. Total hip precautions. (see enclosed information) If you have the Aquacel Ag dressing, leave in place for 7 days then remove. If dressing becomes soiled (turns black), remove and use gauze 4x4 dressing and silvasorb ointment and change daily. Keep incision clean and dry. To avoid constipation while taking any narcotic pain medication, take an over the counter stool softener/laxative. Use your Cryocuff or ice packs as directed, on for 20 minutes at a time throughout the day. This and elevation will help with pain and swelling. Call your physician for fevers above 100.5 or pain not controlled by medication. INR on Wednesday 07/19 and then weekly x 3 weeks - call results to Dr Banerjee. Other Amb Orders: Prothrombin Time INR Location: Determined By Patient - Follow up Plan Follow up with: Anand Banerjee MD [Physician] - Molly De Jesus MD [Primary Care Provider] - Disposition: Xfer Other Prognosis: Fair Rehab Potential: Fair I certify that the patient requires SNF services: Yes Overall status at discharge: patient is progressing back to baseline Medical - DS: Qual - VTE Deep Vein Thrombosis/Pulmonary Embolism Present on Admission: No
[2017-07-15] MEDS: Formoterol Fumarate [Perforomist] 20 MCG INH SCH (09:14)
[2017-07-15] MEDS: IPRATROPIUM/ALBUTEROL 3 ML AMPUL.NEB NEB SCH (09:39)
[2017-07-15] MEDS: BUDESONIDE 0.5 MG/2 ML AMPUL.NEB NEB SCH (09:40)
--- NOTE | 2017-07-16 07:43 | Operative Note ---
DATE OF OPERATION: 07/12/2017 PREOPERATIVE DIAGNOSIS: Right hip displaced midcervical femoral neck fracture. POSTOPERATIVE DIAGNOSIS: Right hip displaced midcervical femoral neck fracture. PROCEDURE PERFORMED: Open treatment of right midcervical femoral neck fracture with prosthetic hemiarthroplasty placing a DePuy [place] basic press-fit stem size 3 with a -3 neck and a 44 unipolar head. SURGEON: Anand Banerjee MD. SWIMMING POOL SALESPERSON: Bal Stearns PA-C. ANESTHESIA: Spinal plus general. DRAINS: None. SPECIMENS: Femoral head which was discarded. BLOOD LOSS: 100 mL POSTOPERATIVE CONDITION: Stable. INDICATIONS FOR SURGERY: This is an 87-year-old female who was previously ambulatory and fell. She did have some dementia. Discussion with family led them to wish to proceed with operative intervention. FINDINGS AT SURGERY: She did have a displaced midcervical femoral neck fracture. Post-hemiarthroplasty showed stable implant position with good range of motion. PROCEDURE IN DETAIL: The patient and her daughter had been seen preoperatively. Informed consent had been obtained after discussion of risks and benefits of surgery. Risks including, but not limited to, bleeding, possibly requiring transfusion; infection, possibly requiring implant removal and prolonged IV antibiotics; injury to nerves, blood vessels, and other surrounding structures; anesthetic risks; incomplete or no resolution of symptoms; dislocation; fracture; DVT and pulmonary embolus risks; and the possibility of needing further surgery. Her daughter understood these risks and wished to proceed. Correct operative site was marked and the patient was given spinal anesthesia. She was then taken to the operating room and general given. She was carefully positioned into the left lateral decubitus position and pressure points carefully padded. The right hip and leg were then carefully prepped and draped in normal sterile fashion. A time-out was performed verifying patient name, operative site, and plan. Standard posterior approach incision was made with a scalpel through skin and subcutaneous tissue. Hemostasis was obtained with Bovie cautery. Iliotibial band was incised in line with the incision and then a Charnley retractor placed. Short external rotators were released off the posterior femur and then the capsule was opened and a corkscrew was placed in the femoral head and this was removed. It sized between a 44 and 45 mm, so we chose a 44 head. We made a freshening cut with the saw blade on the femoral neck. We placed a trial head to verify a good size for the head which fit nicely, so we then started broaching, initially box osteotome and a canal lateralizing reamer was used and then we began sequentially broaching up to a size 3. We initially tried to trial with a standard 0 neck; however, reduction was too difficult, so we went down to a -3. This reduced with good tension. We checked our leg lengths, which was good and range of motion was full without dislocation, so we opened this implant. We removed the trial implants irrigated the femoral canal with IrriSept and after a minute pulse lavaged with saline. The implant was impacted and then the head/neck combination was impacted onto the stem. Hip was reduced. We checked stability one more time and then irrigated with IrriSept, after a minute pulse lavage. Capsule was closed with #2 Ethibond [id number]. We then closed the IT band with running #1 Vicryl, one running proximal, one running distal. Final IrriSept irrigation was done after pulse lavage. Then we used 2-0 Monocryl and rufus for skin. Xeroform and sterile dressing were applied. The patient was placed in an abductor wedge, awakened, extubated, and transferred to recovery in stable condition. [email or web address] Job ID: [id number] Doc ID: [id number] Anand Banerjee MD
== END 2017-07-15 13:55 | disposition other institution (70) | DRG 470 ==
LOC: ED 15:01 → MEDSUR 19:40
PROVIDERS: ADMIT Internal Medicine; ATTEND Specialist
PROC: HEMIHIP (2017-07-13 16:33)